=== PATIENT | female | born 1955 | race Caucasian/White ===

== ENCOUNTER 2021-08-02 09:46 | Day surgery (SDC) | payer MEDICARE, OTHER ==
[~2021-08-02] VITALS: Ht 162.6 cm; Wt 93.6 kg
[~2021-08-02 09:46] MED LIST: CITA20TA6 PO; D31000TA2 PO; LIDOCAINE 1% MDV 20ML VIAL SQ PRN; LR 1,000 ML IV ONE; PHENYLEPHRINE 2.5% OPHTH SOL 2ML OU ONE; PRIL20TA2 PO; REME15TA2 PO; TOPR50TA PO; TRAM50TA2 PO; TRAV04OPD OU; TRIA37.53 PO; VITMTA PO; [UNRECOGNIZED DRUG - CODE] XX
[2021-08-02] MEDS ORDERED: propofoL 200 MG/20 ML VIAL As Ordered ONE (11:37)
[2021-08-02] MEDS ORDERED: LIDOCAINE 2% 100MG/5ML SDV (FOR ANES.) As Ordered ONE (11:37)
[2021-08-02] MEDS ORDERED: ROCURONIUM BROMIDE 50 MG/5 ML VIAL As Ordered ONE (11:37)
[2021-08-02] MEDS ORDERED: MIDAZOLAM INJ 2MG/2ML VIAL (J2250 PER 1MG) As Ordered ONE (11:38)
[2021-08-02] MEDS ORDERED: fentaNYL 100 MCG/2 ML INJECTION (J3010) As Ordered ONE ×3 (11:38→13:22)
[2021-08-02] MEDS ORDERED: ERYTHROMYCIN OPHTH OINT As Ordered ONE (11:40)
[2021-08-02] MEDS ORDERED: POVIDONE-IODINE 5% OPHTH PREP SOL 30ML As Ordered ONE (11:42)
[2021-08-02] MEDS ORDERED: GLYCOPYRROLATE INJ 0.2 MG/ML 2 ML VIAL As Ordered ONE (11:44)
[2021-08-02] MEDS ORDERED: ONDANSETRON 4MG/2ML VIAL As Ordered ONE (12:10)
[2021-08-02] MEDS ORDERED: dexameTHASONE 4 MG/ML 1ML VIAL (J1100 PER 1MG) As Ordered ONE (12:10)
[2021-08-02] MEDS ORDERED: LABETALOL 100MG/20ML VIAL As Ordered ONE (12:32)
[2021-08-02] MEDS ORDERED: SUGAMMADEX SODIUM 500 MG/5 ML VIAL (BRIDION) As Ordered ONE (13:16)
[2021-08-02] MEDS ORDERED: ACETAMINOPHEN 1000MG 100ML IV BTL (OFIRMEV) (J0131 PER 10MG) As Ordered ONE (13:16)
[2021-08-02 15:15] VITALS: BP 147/70
--- NOTE | 2021-08-02 16:53 | RO ---
OPERATIVE NOTE DATE OF OPERATION: 08/02/2021 PREOPERATIVE DIAGNOSIS: Left sensory large-angle exotropia, left eye. POSTOPERATIVE DIAGNOSIS: Left sensory large-angle exotropia, left eye. PROCEDURE: Bilateral lateral rectus recession 9 mm bilateral, both eyes. SURGEON: Joey Finney DO LEDGER CLERK: INDICATION: Large angle sensory exotropia, left eye. ANESTHESIA: General endotracheal. ESTIMATED BLOOD LOSS: Minimal. SPECIMENS: None. COMPLICATIONS: None. PROCEDURE IN DETAIL: After obtaining informed consent, a decision was made to perform a bilateral lateral rectus recession of 9 mm. Originally, I planned to additionally resect the left medial rectus muscle but given that the patient is a late middle-aged adult and the strabismus tables are not accurate sometimes at this range, I discussed it with the patient and we decided just to do the lateral rectus of both eyes and if she had a residual exotropia, we can come back at a later date and then be more precise in our measurements and outcome. The patient was taken to the operating room and placed under general endotracheal anesthesia. A timeout was performed, confirming we had the correct patient and operative sites. Next, the eyes were prepped and draped in a sterile fashion. A lid speculum was introduced into the left eye. A fornix-based incision was made through the conjunctiva and underlying Tenon's capsule. The left lateral rectus muscle was snare with a succession of muscle hooks. When it was evident that the entire muscle had been snared, blunt dissection and sharp dissection of the overlying tissues and ligaments was performed. The muscle next had a double-armed Vicryl suture. Sutures were passed near the insertion in a double-locking fashion at the inferior and superior pole of the muscle. The muscle was disinserted from the globe and reattached to the globe approximately 9 mm posterior to its original insertion. The overlying Tenon's capsule and conjunctiva were closed with 6-0 silk sutures. Antibiotic ointment was introduced to the eye and the lid speculum was removed. An identical procedure was performed on the right eye. However, a limbal based conjunctival incision was created. This muscle lateral rectus muscle was also recessed 9 mm from the original insertion. The patient tolerated the procedure well. There were no complications, She was successfully extubated and returned to the recovery room in excellent condition. I spoke to her on the telephone and also prescribed Maxitrol ophthalmic ointment four times a day and Tylenol as needed for pain. She will return to my office on postop day #3 for followup.
== END 2021-08-02 15:40 | disposition home or self-care (01) ==
LOC: M SDC 09:46
PROVIDERS: ATTEND Ophthalmology
DX: H50.10 Unspecified exotropia (principal); H55.00 Unspecified nystagmus; I10 Essential (primary) hypertension; E78.5 Hyperlipidemia, unspecified; K21.9 Gastro-esophageal reflux disease without esophagitis; Z79.899 Other long term (current) drug therapy; Z92.21 Personal history of antineoplastic chemotherapy; Z85.3 Personal history of malignant neoplasm of breast
CPT/HCPCS: 67311; J0131; J1100; J2250; J2405; J3010